=== PATIENT | male | born 1995 | race Caucasian/White ===

== ENCOUNTER 2022-05-10 08:59 | Day surgery (SDC) | payer MEDICAID ==
[~2022-05-10] VITALS: Ht 167.6 cm; Wt 90.9 kg
[2022-05-10 09:09] VITALS: BP 138/88
[2022-05-10] MEDS ORDERED: LIDOcaine Viscous 15ml cup ONE (09:16)
[2022-05-10] MEDS ORDERED: MIDAZolam 1 MG/ML 5ML VIAL ONE (09:16)
[2022-05-10] MEDS ORDERED: fentaNYL/PF 50MCG/1 ML 2ML syringe ONE (09:16)
[2022-05-10] MEDS ORDERED: VERA120T86 PO (09:17)
[2022-05-10] MEDS ORDERED: FLUV50TA24 PO (09:17)
[2022-05-10] MEDS ORDERED: LAMO200T10 PO (09:18)
[2022-05-10] MEDS ORDERED: ARIP2TAB37 PO (09:18)
[2022-05-10] MEDS ORDERED: TOPI50TA24 PO ×2 (09:19→09:20)
[2022-05-10] MEDS ORDERED: FLUT16SP2 BOTHNARES (09:21)
[2022-05-10] MEDS ORDERED: OLOP2.5D12 OP (09:22)
[2022-05-10] MEDS ORDERED: SUMA100T16 PO (09:23)
[2022-05-10] MEDS ORDERED: BISA-78 PO (09:24)
[2022-05-10] MEDS ORDERED: DOCU-148 PO (09:24)
[2022-05-10] MEDS ORDERED: CETI-90 PO (09:25)
[2022-05-10] MEDS ORDERED: PANT-47 PO (09:25)
[2022-05-10 10:25] VITALS: BP 141/89
[2022-05-10 10:35] VITALS: BP 123/76
[2022-05-10 10:45] VITALS: BP 112/83
[2022-05-10 10:55] VITALS: BP 108/77
== END 2022-05-10 11:00 | disposition home or self-care (01) ==
LOC: GI LAB 08:59
PROVIDERS: ATTEND Internal Medicine Gastroenterology
DX: R13.10 Dysphagia, unspecified (principal); K29.70 Gastritis, unspecified, without bleeding; K21.9 Gastro-esophageal reflux disease without esophagitis; F84.0 Autistic disorder; G40.909 Epilepsy, unspecified, not intractable, without status epilepticus
CPT/HCPCS: 43239; 99152; J2250; J3010; J7030; Z7512